=== PATIENT | male | born 1965 | race Caucasian/White ===

== ENCOUNTER 2018-11-14 10:16 | Emergency (ER) | payer OTHER ==
--- NOTE | 2018-11-14 10:43 | ED Physician Documentation ---
Fall - HISTORIAN Historian: patient - HPI Stated Complaint: fall, left sided pain Chief Complaint: Fall Additional Information: pt standine upon pickup truck lost balance fell approc 3-4 feet to ground on lt side c/o severe lt low thoracid and lt flank and luq abd pain Onset: days ago (2 days progressively worse-no bm since fall-usual;ly 1bm daily) Context: lost balance r: moderate Associated Symptoms:: no loss of consciousness Location of Pain/Injury: abdomen, other (lt low jose thorax). denies: head, neck, face Further Comments: yes (had been drinking heavily at time fall) - ROS CONST: no problems NEURO: denies: dizziness MS/SKIN/LYMPH: back pain (low thorax ext part into back). denies: weakness, numbness, neck pain EYES/ENT: none CVS/RESP: none GI/: denies: problems urinating, nausea, vomiting - PAST HX Past History: none Allergies/Adverse Reactions: Allergies Allergy/AdvReac Type Severity Reaction Status Date / Time No Known Allergies Allergy Verified 11/14/18 10:33 Home Medications: Ambulatory Orders Medication Instructions Recorded NK 11/14/18 - SOCIAL HX Smoking History: cigarettes Alcohol Use: heavy (beer) Drug Use: none - FAMILY HX Family History: no significant history - VITAL SIGNS Vital Signs: Vital Signs Temp Pulse Resp BP Pulse Ox 98.7 F 101 H 20 173/102 98 11/14/18 10:16 11/14/18 10:16 11/14/18 10:16 11/14/18 10:16 11/14/18 10:16 - REVIEWED ASSESSMENTS Nursing Assessment Reviewed: Yes Vitals Reviewed: Yes ED Results Lab/Radiology - Lab Results Lab Results: cxr = no path seen---rad says ct abd=ok - Orders Orders: ED Orders Category Date Time Status CHEST 2VIEW [RAD] Stat Exams 11/14/[address] ABDOMEN PELVIS S [CT ABD & PELVIS W/O CON] Stat Exams 11/14/18 Ordered UA [URINALYSIS] Routine Lab 11/14/18 Ordered Fall Physical Exam - Physical Exam General Appearance: moderate distress Head: non-tender, no swelling Neck: non-tender, painless ROM Eye: GALINA Resp/CVS: No: breath sounds nml (sl rale rhonci lt low lat thorax) Abdomen: soft, tenderness. No: rigid Neuro: oriented x3, sensation nml, motor nml, mood/affect nml Skin: color nml. No: no rash, cyanosis, diaphoresis, pallor, ecchymosis Back: CVA tenderness (L) Extremities: atraumatic Joint: joints nml, nml ROM, Nml gait/weight bearing - [place] Coma Score Eyes Open: Spontaneous Speech: Oriented Motor: Obeys Commands Discharge Clincal Impression: fall w.lt rib trauma/fracture Referrals: Luzma Ruiz MD [Primary Care Provider] - 2 Days Comments: home cpt re ed prn sy worsen Condition: Good Disposition: 01 HOME, SELF-CARE Decision to Admit: NO (n) Decision Time: 11:45
[2018-11-14 10:56] LABS: APPEARANCE,URINE CLEAR (CLEAR); COLOR,URINE YELLOW (YELLOW); OCCULT BLOOD,URINE NEGATIVE (NEGATIVE)
[2018-11-14 10:57] LABS: PH URINE 6.5 (5.0 - 8.0); UROBILINOGEN URINE 0.2 Eu (0.2-1.0)
--- NOTE | 2018-11-14 11:06 | Diagnostic Imaging Report ---
ALEXEY ROB [facility] [address] [facility].[address] [id number] Report Submission Date: November 14, 2018 11:05:33 AM CDT Patient Study Name: ZAMZAM BENNETT Date: November 14, 2018 10:51:25 AM CDT Modality Type: DX Gender: M Description: CHEST 2VIEW : 65 Institution: [facility] Physician: ALEXEY ROB PA AND LATERAL CHEST HISTORY: Left-sided pain COMPARISON: None PA and Lateral Chest dated November 14, 2018 demonstrates a normal cardiomediastinal silhouette. Pulmonary vascularity is normal. Lungs are clear. IMPRESSION: NO ACTIVE DISEASE. Electronically signed on November 14, 2018 11:05:33 AM CDT by: Shirley GARCIA
--- NOTE | 2018-11-14 11:14 | Diagnostic Imaging Report ---
ALEXEY ROB [facility] [address] [facility] [address] [place], [place]. [address] Report Submission Date: November 14, 2018 11:12:20 AM CDT Patient Study Name: ZAMZAM BENNETT Date: November 14, 2018 10:49:59 AM CDT Modality Type: CT\SR Gender: M Description: CT ABD PELVIS W/O CO : 65 Institution: [facility] Physician: ALEXEY ROB CT ABDOMEN AND PELVIS WITHOUT CONTRAST HISTORY: Left-sided pain TECHNIQUE: Helically acquired images were obtained from the hemidiaphragms to the pelvic floor without IV contrast using a stone protocol. FINDINGS: On these images without IV contrast, which limits solid organ evaluation, the liver, gallbladder, spleen, adrenal glands, pancreas and kidneys are unremarkable. There are no renal or ureteral stones and there is no hydronephrosis. There is increased stool throughout the entire right colon. No abnormally dilated large or small bowel loops are noted. There is mild aortoiliac atherosclerosis without aneurysm. There are several dystrophic calcifications within the prostate gland but the prostate gland is not enlarged and the bladder is unremarkable. There is no free fluid in the abdomen or pelvis. There is a calcified granuloma adjacent to the right hemidiaphragm. Otherwise, the lung bases are clear. No significant osseous abnormalities are noted. Impression: No renal or ureteral stones. Increased stool throughout the right colon. No acute intra-abdominal or intrapelvic abnormalities are noted. Electronically signed on November 14, 2018 11:12:20 AM CDT by: Shirley GARCIA
[2018-11-14 11:57] VITALS: BP 159/98
== END 2018-11-14 11:45 | disposition home or self-care (01) ==
LOC: ED 10:16
DX: S22.32XA Fracture of one rib, left side, initial encounter for closed fracture (principal); W17.89XA Other fall from one level to another, initial encounter; Y93.89 Activity, other specified; Y92.812 Truck as the place of occurrence of the external cause
CPT/HCPCS: 71046; 74176; 81002; 99283; 99285; S1016